=== PATIENT | female | born 1955 | race Hispanic/Latino ===

== ENCOUNTER → 2021-08-28 | Outpatient (CLI) | payer MEDICARE | LOC: RAD 15:00 | PROVIDERS: ATTEND Internal Medicine Critical Care Medicine | DX: R06.00 Dyspnea, unspecified (principal) | CPT/HCPCS: 71046 ==

== ENCOUNTER → 2021-12-06 | Outpatient (CLI) | payer MEDICARE | LOC: US 07:35 | PROVIDERS: ATTEND Obstetrics & Gynecology | DX: M81.8 Other osteoporosis without current pathological fracture (principal); R10.30 Lower abdominal pain, unspecified; N88.8 Other specified noninflammatory disorders of cervix uteri | CPT/HCPCS: 76830; 77080 ==